=== PATIENT | female | born 1980 | race American Indian/Alaskan Native ===

== ENCOUNTER 2017-05-02 13:49 | Emergency (ER) | payer SELFPAY ==
[2017-05-02 15:04] VITALS: BP 128/78
--- NOTE | 2017-05-02 15:25 | Emergency Department Report ---
Entered by NAYA OLEA, acting as scribe for ECHO WALLS NP. Chief Complaint: Headache Stated Complaint: HEADACHE Time Seen by Provider: 05/02/17 15:15 - HPI History of Present Illness: This is a 37-year-old non-toxic, non ill appearing, in no acute distress with c/ o a gradual onset of a throbbing and aching generalized headache that started yesterday. Patient states the headache is gradually worsening. Aggravated with light exposure and alleviated with darkness. Patient denies that this is the worst headache of her life. She reports mild dizziness and nausea. Patient denies fever, chills, SOB, and chest pain. Patient stated headache is similar to her migraine headaches that she had for years. Patient stated has been started on a new medication by her PCP with no relief. Denies any trauma. PMHx of Migraines and she notes compliancy to medications, which she took with no relief. - ROS Review of Systems: Reports mild nausea but denies vomiting. Reports headache and dizziness. Denies fever and chills, stiff neck. Denies SOB and chest pain. - Exam Vital Signs: Vital Signs 05/02/17 15:02 Temperature 98.4 F Pulse Rate 63 Respiratory 16 Rate Blood Pressure 128/78 O2 Sat by Pulse 100 Oximetry Physical Exam: GENERAL: The patient is a well-developed, well-nourished female in no apparent distress. Patient is alert and acting appropriately for age. Alert and oriented 3, no apparent distress, normal gait, atraumatic. HEENT: Head is normocephalic and atraumatic. PERRL, Extraocular muscles are intact. Pupils are equal, round, and reactive to light and accommodation. Constitutional: Non toxic appearing, NAD. Cardiovascular: Normal rate and rhythm with normal S1/S2 sounds. Respiratory: No respiratory distress. Lung sounds clear to auscultation bilaterally. Abdomen: Abdomen is non-distended, soft with no tenderness to palpation in all quadrants. MSE screening note: Focused history and physical exam performed. Due to findings the following was ordered: CBC, BMP, HCG qualitative and UA was ordered for patient. ED Disposition for MSE Condition: Stable This documentation as recorded by the scribe,NAYA OLEA,accurately reflects the service I personally performed and the decisions made by ,ECHO WALLS NP.
[2017-05-02 15:36] LABS: Mean Corpuscular HGB Conc 29 % (30-34); Platelet Count 236 K/mm3 (140-440); Red Blood Count 4.32 M/mm3 (3.65-5.03); White Blood Count 6.4 K/mm3 (4.5-11.0)
[2017-05-02 15:42] LABS: Hematocrit 26.6 % (30.3-42.9); Hemoglobin 7.7 gm/dl (10.1-14.3); Mean Corpuscular Hemoglobin 18 pg (28-32); Mean Corpuscular Volume 62 fl (79-97); Red Cell Distribution Width 28.6 % (13.2-15.2)
[2017-05-02 15:55] LABS: Anion Gap 18 mmol/L; Blood Urea Nitrogen 12 mg/dL (7-17); Calcium 9.1 mg/dL (8.4-10.2); Carbon Dioxide 23 mmol/L (22-30); Chloride 102.5 mmol/L (98-107); Glucose 95 mg/dL (65-100); Potassium 4.1 mmol/L (3.6-5.0); Sodium 139 mmol/L (137-145)
[2017-05-02] MEDS ORDERED: MORPHINE IM ONE (17:07)
[2017-05-02] MEDS ORDERED: REGLAN IM ONE (17:07)
--- NOTE | 2017-05-02 17:13 | Emergency Department Report ---
ED Headache HPI - General Chief Complaint: Headache Stated Complaint: HEADACHE Time Seen by Provider: 05/02/17 16:40 Source: patient - History of Present Illness Initial Comments: Patient comes into the ER today with complaints of a migraine headache for the past 3 days. Patient states that she has a long history of migraine headaches. Patient further notes that she just recently moved here from [place] and has lived in the area for approximately 1 month. Patient has not seen any doctor in this area but would like to get referred to specialists for her continuity of care. Patient further notes that she has strong family as well as personal history of cancer and has just recently finished radiation therapy for a spot on her lung. Patient states her last treatment of radiation was one month ago. Patient denies any head injury, vision changes. Patient does state that the light seems to bother her headache. Patient also complaining of left wrist pain after having blood drawn from us here in the ER. Quality: sharp Head Injury Location: frontal (right), temporal (right) Recent Head Trauma: no recent headache/trauma Modifying Factors: worse with: exposure to light Allergies/Adverse Reactions: Allergies promethazine HCl [From Phenergan] Adverse Reaction (Verified 05/02/17 15:05) Swelling Home Medications: Ambulatory Orders Butalb/Acetamin/Caff 50-325-40 [Fioricet] 1 tab PO Q6HR PRN #20 tab 05/02/17 Cyclobenzaprine [Flexeril] 10 mg PO QHS PRN #20 tablet 05/02/17 Metoclopramide [Reglan] 10 mg PO TID PRN #18 tab 05/02/17 ED Review of Systems ROS: Stated complaint: HEADACHE Other details as noted in HPI Constitutional: denies: chills, fever Eyes: denies: eye pain, eye discharge, vision change ENT: denies: ear pain, throat pain, dental pain, hearing loss, epistaxis, congestion Respiratory: denies: cough, shortness of breath, wheezing Cardiovascular: denies: chest pain, palpitations Endocrine: no symptoms reported Gastrointestinal: denies: abdominal pain, nausea, diarrhea Genitourinary: denies: urgency, dysuria, discharge Musculoskeletal: myalgia. denies: back pain, joint swelling, arthralgia Skin: denies: rash, lesions Neurological: headache. denies: weakness, numbness, paresthesias, confusion, abnormal gait, vertigo Psychiatric: denies: anxiety, depression Hematological/Lymphatic: denies: easy bleeding, easy bruising ED Past Medical Hx - Past Medical History Hx Headaches / Migraines: Yes - Surgical History Past Surgical History?: Yes Additional Surgical History: cyst on arms, colon mass - Social History Smoking Status: Never Smoker Substance Use Type: None - Medications Home Medications: Home Medications Medication Instructions Recorded Confirmed Last Taken Type Butalb/Acetamin/Caff 50-325-40 1 tab PO Q6HR PRN #20 tab 05/02/17 Unknown Rx [Fioricet] Cyclobenzaprine [Flexeril] 10 mg PO QHS PRN #20 tablet 05/02/17 Unknown Rx Metoclopramide [Reglan] 10 mg PO TID PRN #18 tab 05/02/17 Unknown Rx ED Physical Exam - General Limitations: No Limitations General appearance: alert, in no apparent distress - Head Head exam: Present: atraumatic, normocephalic - Eye Eye exam: Present: normal appearance, PERRL, EOMI. Absent: conjunctival injection, periorbital swelling, periorbital tenderness Pupils: Present: normal accommodation - ENT ENT exam: Present: normal exam, normal orophraynx, mucous membranes moist, TM's normal bilaterally, normal external ear exam - Neck Neck exam: Present: normal inspection, tenderness (right posterior muscle tenderness). Absent: lymphadenopathy - Respiratory Respiratory exam: Present: normal lung sounds bilaterally. Absent: respiratory distress, chest wall tenderness, decreased breath sounds - Cardiovascular Cardiovascular Exam: Present: regular rate, normal rhythm. Absent: systolic murmur, diastolic murmur, rubs, gallop - GI/Abdominal GI/Abdominal exam: Present: soft, normal bowel sounds - Extremities Exam Extremities exam: Present: tenderness. Absent: normal inspection (ecchymosis and pain around the site of lab draw to left anterior wrist), full ROM, normal capillary refill, pedal edema - Back Exam Back exam: Present: normal inspection, full ROM. Absent: tenderness, paraspinal tenderness, vertebral tenderness - Neurological Exam Neurological exam: Present: alert, oriented X3, CN II-XII intact, reflexes normal. Absent: motor sensory deficit - Psychiatric Psychiatric exam: Present: normal affect, normal mood - Skin Skin exam: Present: warm, dry, intact, normal color. Absent: rash ED Course Vital Signs 05/02/17 15:02 Temperature 98.4 F Pulse Rate 63 Respiratory 16 Rate Blood Pressure 128/78 O2 Sat by Pulse 100 Oximetry ED Medical Decision Making - Lab Data Result diagrams: 05/02/17 15:22 05/02/17 15:22 Lab Results 05/02/17 05/02/17 05/02/17 Range/Units 15:22 15:22 15:22 WBC 6.4 (4.5-11.0) K/mm3 RBC 4.32 (3.65-5.03) M/mm3 Hgb 7.7 L (10.1-14.3) gm/dl Hct 26.6 L (30.3-42.9) % MCV 62 L (79-97) fl MCH 18 L (28-32) pg MCHC 29 L (30-34) % RDW 28.6 H (13.2-15.2) % Plt Count 236 (140-440) K/mm3 Sodium 139 (137-145) mmol/L Potassium 4.1 (3.6-5.0) mmol/L Chloride 102.5 (98-107) mmol/L Carbon Dioxide 23 (22-30) mmol/L Anion Gap 18 mmol/L BUN 12 (7-17) mg/dL Creatinine 1.0 (0.7-1.2) mg/dL Estimated GFR > 60 ml/min BUN/Creatinine Ratio 12.00 % Glucose 95 (65-100) mg/dL Calcium 9.1 (8.4-10.2) mg/dL HCG, Qual Negative (Negative) - Medical Decision Making Patient is nontoxic and hemodynamically stable. Patient does have a long history of headaches and believes that most of her headaches seem to come from stress. Patient was given Reglan and morphine here in the ER for symptomatic relief as she states that those medicines really help her headaches in the past. I will prescribe patient some Fioricet to have at home headache persists or returns. I will also refer patient to specialist since she is new to the area. I will refer her to neurology as well as cancer Center for further following in continuity of care. Patient also placed in a left cockup wrist splint as her pain is hurting after having blood drawn here in the ER. Patient is in agreement with treatment plan patient is stable for discharge. Critical care attestation.: If time is entered above; I have spent that time in minutes in the direct care of this critically ill patient, excluding procedure time. ED Disposition Clinical Impression: Migraine headache, History of cancer, Thrombophlebitis arm Disposition: TO HOME OR SELFCARE Is pt being admited?: No Does the pt Need Aspirin: No Condition: Good Instructions: Migraine Headache (ED), Superficial Thrombophlebitis (ED) Prescriptions: Cyclobenzaprine [Flexeril] 10 mg PO QHS PRN #20 tablet PRN Reason: Muscle Spasm Butalb/Acetamin/Caff 50-325-40 [Fioricet] 1 tab PO Q6HR PRN #20 tab PRN Reason: Headache Metoclopramide [Reglan] 10 mg PO TID PRN #18 tab PRN Reason: Nausea Referrals: PRIMARY CARE, [Primary Care Provider] - 3-5 Days KLEVER FRITZ MD [Staff Physician] - 3-5 Days [facility] [Provider Group] - 3-5 Days OMAYRA FERNANDEZ MD [Staff Physician] - 3-5 Days Time of Disposition: 17:59
[2017-05-02 17:44] LABS: Bilirubin,Urine NEG (Negative); Blood,Urine NEG (Negative); Ketones,Urine NEG (Negative); Leukocyte Esterase,Urine NEG (Negative); Mucus,Urine 3+ /HPF; Nitrite,Urine NEG (Negative)
[2017-05-02 18:03] LABS: Basophils % (Manual) 0 % (0.0-1.8); Blastocytes % (Manual) 0 %; Eosinophils % (Manual) 0 % (0.0-4.3)
[2017-05-02 18:04] LABS: Anisocytosis 1+; Diff Status Complete; Elliptocytes 1+; Hypochromasia 2+; Platelet Estimate Consistent w Auto; Tear Drop Cells 1+
== END 2017-05-02 18:33 | disposition home or self-care (01) ==
LOC: ED 13:49
DX: G43.909 Migraine, unspecified, not intractable, without status migrainosus (principal); M25.532 Pain in left wrist; I80.8 Phlebitis and thrombophlebitis of other sites; Z80.9 Family history of malignant neoplasm, unspecified; Z88.8 Allergy status to other drugs, medicaments and biological substances
CPT/HCPCS: 29125; 36415; 80048; 81001; 84703; 85007; 85025; 96372; 99284; J2270; J2765